=== PATIENT | male | born 1940 | race Two or more races ===

== ENCOUNTER 2018-04-20 11:31 | Day surgery (SDC) | payer MEDICARE ==
[2018-04-17 07:39] VITALS: BMI 38.0
[2018-04-20 12:21] LABS: BASO # 0.03 K/mm3 (0.0-2.0); BASO % 0.5 % (0.0-3.0); EOS # 0.1 (0.0-0.7); EOS % 2.1 % (1.5-5.0); GRAN # 3.29 (1.4-6.5); GRAN % 52.2 % (50.0-68.0); HEMOGLOBIN 9.9 g/dL (14.0-18.0); LYMPH # 2.4 (1.2-3.4); MEAN CELL VOLUME 95.7 fl (80.0-105.0); MEAN CORPUSCULAR HEMOGLOBIN 30.1 pg (25.0-35.0); MEAN CORPUSCULAR HGB CONC 31.4 g/dl (31.0-37.0); MEAN PLATELET VOLUME 9.2 fl (7.0-11.0); MONO # 0.5 (0.1-0.6); MONO % 7.2 % (1.0-6.0); RBC 3.29 10^6/uL (3.5-6.1); RED CELL DISTRIBUTION WIDTH 14.2 % (11.5-14.5); WHITE BLOOD COUNT 6.3 10^3/uL (4.5-11.0)
[2018-04-20 12:28] LABS: CALCIUM 9.4 mg/dL (8.4-10.5); INR 1.03; PARTIAL THROMBOPLASTIN TIME 32.6 Seconds (25.1-36.5); PROTHROMBIN TIME 11.8 SECONDS (9.4-12.5)
[2018-04-20 13:35] LABS: FREE T4 1.02 ng/dL (0.78-2.19)
[2018-04-20] MEDS ORDERED: Midazolam 2 MG/2 ML VIAL ONE (13:37)
[2018-04-20] MEDS ORDERED: Oxycodone/Acetaminophen 5/325 mg Tab PO PRN (14:13)
[2018-04-20] MEDS ORDERED: Sodium Chloride 0.45% 1,000 ML IV SCH (14:15)
[2018-04-20 15:18] VITALS: BP 112/54; PULSE 67; RESP 20; TEMP 97.7; O2SAT 98
--- NOTE | 2018-04-20 17:59 | US ---
PROCEDURE: Ultrasound-guided right thyroid fine needle aspiration biopsy. CLINICAL HISTORY: Dominant 2.5 cm heterogeneous right thyroid nodule. Evaluate for malignancy PHYSICIAN(S): Valente Whitfield M.D. TECHNIQUE: The relative risks and indications for the procedure were explained to the patient and consent obtained. The patient was placed supine on the stretcher with the neck extended and preliminary sonography of the thyroid performed. This reveal dominant 2.5 cm heterogeneous nodule in the mid right thyroid. Additional smaller nodules are seen. The left lobe is somewhat atrophic. The neck was prepped and draped in the usual sterile fashion. Conscious sedation and monitoring were provided throughout the procedure by a nurse. 1% Xylocaine was used to anesthetize the skin and soft tissues at the access site. Three passes with a 22-gauge needle were performed under ultrasound guidance for fine needle aspiration of the 2.5 cm hypoechoic nodule in the right thyroid. The slides were reviewed by pathology and deemed adequate. The patient tolerated the procedure well. IMPRESSION: 1. Ultrasound guided fine needle aspiration of a 2.5 cm dominant heterogeneous nodule in the right thyroid
== END 2018-04-20 16:05 | disposition home or self-care (01) ==
LOC: SDS 11:31
PROVIDERS: ATTEND Radiology Vascular & Interventional Radiology
DX: E04.1 Nontoxic single thyroid nodule (principal)
CPT/HCPCS: 10005; 36415; 80048; 84439; 84443; 84481; 85025; 85610; 85730; 86376; 86800; 88173; 88305; 99152; J2405; J3010; J7030

== ENCOUNTER 2018-04-24 01:51 | Emergency (ER) | payer MEDICARE ==
[2018-04-24 01:51] VITALS: BMI 38.0
[2018-04-24 02:03] VITALS: RESP 18
--- NOTE | 2018-04-24 02:15 | ED PDOC ---
Arrival/HPI - General Chief Complaint: Abdominal Pain Time Seen by Provider: 04/24/18 01:53 Historian: Patient, Family - History of Present Illness Narrative History of Present Illness (Text): 04/24/18 02:11 Olga Lidia Ryan is a 77 year old male, whose past medical history includes Parkinson's disease and aortic valve repair, who presents to the Emergency department accompanied by family complaining of abdominal pain. Patient states he has been experiencing diffuse abdominal pain for the past 2-3 days with associated constipation. states patient's last bowel movement was 2 days ago. Patient denies any fever, chills, chest pain, shortness of breath, nausea, vomiting, diarrhea, urinary symptoms, back pain, neck pain, headache, dizziness, or any other complaints. Symptom Onset: Gradual Symptom Course: Unchanged Activities at Onset: Light Context: Home Past Medical History - Provider Review Nursing Documentation Reviewed: Yes - Cardiac Hx Pacemaker: No - Neurological Hx Paralysis: No - Hematological/Oncological Hx Blood Transfusions: No - Musculoskeletal/Rheumatological Hx Musculoskeletal Disorders: No - Psychiatric Hx Emotional Abuse: No Hx Physical Abuse: No Hx Substance Use: No - Anesthesia Hx Anesthesia Reactions: No Hx Malignant Hyperthermia: No - Suicidal Assessment Feels Threatened In Home Enviroment: No Family/Social History - Physician Review Nursing Documentation Reviewed: Yes Family/Social History: Unknown Family HX Smoking Status: Unknown If Ever Smoked Hx Alcohol Use: No Hx Substance Use: No Allergies/Home Meds Allergies/Adverse Reactions: Allergies No Known Allergies Allergy (Verified 04/24/18 01:54) Home Medications: Home Meds Medication Instructions Recorded Confirmed Aspirin [Adult Aspirin Regimen] 81 mg PO DAILY 04/18/18 04/24/18 Carbidopa/Levodopa [Rytary 61.25 3 cap PO TID 04/18/18 04/24/18 mg-245 mg] DULoxetine [Cymbalta] 30 mg PO DAILY 04/18/18 04/24/18 Diclofenac Sodium/Misoprostol 1 tab PO BID 04/18/18 04/24/18 [Arthrotec 75 mg-0.2 mg] Esomeprazole Magnesium [Nexium] 40 mg PO DAILY 04/18/18 04/24/18 Furosemide [Lasix] 80 mg PO DAILY 04/18/18 04/24/18 Metoprolol Tartrate [Lopressor] 50 mg PO BID 04/18/18 04/24/18 Potassium Chloride [K-Tab ER] 10 meq PO DAILY 04/18/18 04/24/18 RX: Baclofen [Lioresal] 10 mg PO BID 04/18/18 04/24/18 RX: Spironolactone [Aldactone] 25 mg PO DAILY 04/18/18 04/24/18 Rasagiline Mesylate [Azilect] 1 mg PO DAILY 04/18/18 04/24/18 Review of Systems - Physician Review All systems were reviewed & negative as marked: Yes - Review of Systems Constitutional: Normal. absent: Fevers Eyes: Normal ENT: Normal Respiratory: Normal. absent: SOB, Cough Cardiovascular: Normal Gastrointestinal: Abdominal Pain, Constipation Genitourinary Male: Normal. absent: Dysuria, Frequency, Hematuria, Urinary Out put Changes Musculoskeletal: Normal. absent: Arthralgias, Back Pain, Neck Pain Skin: Normal. absent: Rash Neurological: Normal Endocrine: Normal Hemo/Lymphatic: Normal Psychiatric: Normal Physical Exam Vital Signs Reviewed: Yes Vital Signs Temp Pulse Resp BP Pulse Ox 04/24/18 01:59 98 F 96 H 18 135/78 100 Temperature: Afebrile Blood Pressure: Normal Pulse: Regular Respiratory Rate: Normal Appearance: Positive for: Well-Appearing, Non-Toxic, Comfortable Pain Distress: None Mental Status: Positive for: Alert and Oriented X 3 - Systems Exam Head: Present: Atraumatic, Normocephalic Pupils: Present: PERRL Extroacular Muscles: Present: EOMI Conjunctiva: Present: Normal Mouth: Present: Moist Mucous Membranes Neck: Present: Normal Range of Motion Respiratory/Chest: Present: Clear to Auscultation, Good Air Exchange. No: Respiratory Distress, Accessory Muscle Use Cardiovascular: Present: Regular Rate and Rhythm, Normal S1, S2. No: Murmurs Abdomen: Present: Distention (Distended, firm abdomen). No: Tenderness, Peritoneal Signs Back: Present: Normal Inspection. No: CVA Tenderness, Midline Tenderness, Paraspinal Tenderness Upper Extremity: Present: Normal Inspection. No: Cyanosis, Edema Lower Extremity: Present: Normal Inspection. No: Edema Neurological: Present: GCS=15, CN II-XII Intact, Speech Normal Skin: Present: Warm, Dry, Normal Color. No: Rashes Psychiatric: Present: Alert, Oriented x 3, Normal Insight, Normal Concentration Medical Decision Making ED Course and Treatment: 04/24/18 02:11 Impression: 77 year old male complaining of abdominal pain and constipation. Plan: -- CT Abdomen and Pelvis -- EKG -- Chest X-ray -- Labs, lipase -- IV fluids -- Morphine -- Reassess and disposition Prior Visits: Notes and results from previous visits were reviewed. Progress Notes: Reviewed EKG, sinus tachycardia at [address] bpm[address] Non-specific ST/T wave changes. 04/24/18 04:43 Reviewed radiology, Chest X-ray shows atelectatic changes and bowel distension. CT Abdomen and Pelvis: Moderate diffuse gaseous distention of the sigmoid which contains fecal material. The largest transverse dimension of the sigmoid measures 10.6 cm. No evidence of fat perforation or pneumatosis coli. Bilateral basilar atelectatic pulmonary changes. Normal unenhanced liver. Normal gallbladder and extrahepatic biliary system. Normal unenhanced spleen. Normal pancreas. Normal bilateral adrenal glands. Normal size of the right kidney. There is no right renal mass. There are no right renal calculi. There is no right hydronephrosis. Normal visualized right ureter. Normal size of the left kidney. There is no left renal mass. There are no left renal calculi. There is no left hydronephrosis. Normal visualized left ureter. Fluid-filled distended stomach. Unremarkable small intestine. The appendix is visualized and appears normal. There is no demonstrated peritoneal fluid. Normal abdominal aorta. Normal inferior vena cava. Normal retroperitoneum. Normal urinary bladder. There is no pelvic mass lesion or lymphadenopathy. There is no pelvic fluid. Mild prostatomegaly. Distended bladder. Normal abdominal wall. Unremarkable lower lumbar fusion metallic hardware. IMPRESSION: Acute sigmoid volvulus without perforation or pneumatosis coli. Surgical consultation is recommended. Electronically signed on Apr 24, 2018 4:34:02 AM EST by: Kacy Orozco M.D., Certified by ABR, MSK, Neuroradiology 04/24/18 04:[address] scan findings discussed with surgical manager mason tender restoration labor, who is aware and agrees to evaluate pt. Immediate call placed to Dr. Marquez's service, pending call back. 04/24/18 04:[address] Guerra, who is aware and agrees with plan. Accepts pt in to hospitalist service. Stat surgical consult ordered. Pt will be admitted to [facility] for abdominal pain and volvulus. certified prosthetist vice president notified. 04/24/18 05:[address] Marquez, surgeon mason tender restoration labor/case discussed.Will consult.enrollment management vice president evaluating patient in ED. - Critical Care Critical Care Minutes: 30 minutes - RAD Interpretation Linoleum Layer Apprentice: ED Physician, Radiologist - Auraibdonnie Statement The provider has reviewed the documentation as recorded by the Scribe Samara Rush Provider Scribe Attestation: All medical record entries made by the Auraibdonnie were at my direction and personally dictated by me. I have reviewed the chart and agree that the record accurately reflects my personal performance of the history, physical exam, medical decision making, and the department course for this patient. I have also personally directed, reviewed, and agree with the discharge instructions and disposition. Disposition/Present on Arrival - Present on Arrival Any Indicators Present on Arrival: No History of DVT/PE: No History of Uncontrolled Diabetes: No Urinary Catheter: No History of Decub. Ulcer: No History Surgical Site Infection Following: None - Disposition Have Diagnosis and Disposition been Completed?: Yes Diagnosis: Abdominal pain, Sigmoid volvulus Disposition: HOSPITALIZED Disposition Time: 05:01 Patient Plan: Admission Patient Problems: Current Active Problems Problem Status Onset Abdominal pain Acute Sigmoid volvulus Acute Condition: STABLE
[2018-04-24] MEDS ORDERED: Morphine 2 mg/ml ISec IVP STA (02:24)
[2018-04-24] MEDS ORDERED: Sodium Chloride 0.9% 1,000 ML IV SCH ×2 (02:30→12:01)
[2018-04-24 02:34] LABS: HEMOGLOBIN 10.1 g/dL (14.0-18.0); MEAN CELL VOLUME 96.7 fl (80.0-105.0); MEAN CORPUSCULAR HEMOGLOBIN 30.3 pg (25.0-35.0); MEAN CORPUSCULAR HGB CONC 31.4 g/dl (31.0-37.0); MEAN PLATELET VOLUME 8.9 fl (7.0-11.0); RBC 3.33 10^6/uL (3.5-6.1); RED CELL DISTRIBUTION WIDTH 14.4 % (11.5-14.5); WHITE BLOOD COUNT 9.8 10^3/uL (4.5-11.0)
[2018-04-24 02:40] LABS: ALB/GLOB RATIO 1.2 (1.1-1.8); ALBUMIN 4.6 g/dL (3.0-4.8); CALCIUM 10.6 mg/dL (8.4-10.5)
[2018-04-24] MEDS ORDERED: Morphine 2 mg/ml ISec ONE (02:47)
[2018-04-24] MEDS ORDERED: Morphine 4 mg/ml ISec IVP STA (04:16)
[2018-04-24] MEDS ORDERED: Sodium Chloride 0.9% 1,000 ML IV STA (04:49)
--- NOTE | 2018-04-24 05:44 | CP.PCM.HP ---
<Ortiz Estrada - Last Filed: 04/24/18 07:00> History of Present Illness - History of Present Illness History of Present Illness: PGY-1 H&P for Dr. Guerra CC: Abdominal pain Patient is a 77 year old male whose past medical history includes Parkinson's disease, sleep apnea, neuropathy, left breast cancer s/p radiation and radical mastectomy (35 years ago), and aortic valve repair, who presents to the Emergency department accompanied by family complaining of abdominal pain. Patient states he has been experiencing diffuse abdominal pain for the past 2-3 days with associated constipation. states patient's last bowel movement was 4 days ago. Patient admits to shortness of breath that started this morning. Patient denies any fever, chills, chest pain, nausea, vomiting, diarrhea, ur inary symptoms, back pain, neck pain, headache, dizziness, or any other complaints. 12 systems ROS reviewed and negative except mentioned in HPI. PMHx: Parkinson's disease, sleep apnea, neuropathy, left breast cancer s/p radiation and radical mastectomy (35 years ago), PSHx: Aortic valve repair (2014), radical mastectomy of left breast (35 years ago), vertebral fusin, right leg surgery Family Hx: Father had diabetes Social Hx: Former smoker, 24 pack years, quit 35 years ago. Denied alcohol and drug use. Allergies: NKDA Meds: see JUN PMD: Dr. Danii Giordano GI: Dr. Bhat Neurologist: Dr. Astudillo Present on Admission - Present on Admission Any Indicators Present on Admission: No History of DVT/PE: No History of Uncontrolled Diabetes: No Urinary Catheter: No Decubitus Ulcer Present: No Review of Systems - Review of Systems All systems: reviewed and no additional remarkable complaints except Past Patient History - Past Social History Smoking Status: Unknown If Ever Smoked - CARDIAC Hx Pacemaker: No - NEUROLOGICAL Hx Paralysis: No - HEMATOLOGICAL/ONCOLOGICAL Hx Blood Transfusions: No - MUSCULOSKELETAL/RHEUMATOLOGICAL Hx Musculoskeletal Disorders: No - GENITOURINARY/GYNECOLOGICAL Hx Prostate Problems: Yes - PSYCHIATRIC Hx Emotional Abuse: No Hx Physical Abuse: No Hx Substance Use: No - SURGICAL HISTORY Hx Surgeries: Yes Hx Mastectomy: Yes (L leg) Hx Orthopedic Surgery: Yes (R leg) Hx Valve Replacement: Yes (Aortic) Other/Comment: Deep brain stimulator. back surgery. varicose veins - ANESTHESIA Hx Anesthesia Reactions: No Hx Malignant Hyperthermia: No Meds Allergies/Adverse Reactions: Allergies Allergy/AdvReac Type Severity Reaction Status Date / Time No Known Allergies Allergy Verified 04/24/18 12:22 Physical Exam - Constitutional Appears: Non-toxic, No Acute Distress - Head Exam Head Exam: ATRAUMATIC, NORMAL INSPECTION - Eye Exam Eye Exam: EOMI, Normal appearance - ENT Exam ENT Exam: Mucous Membranes Dry - Respiratory Exam Respiratory Exam: Clear to Auscultation Bilateral, NORMAL BREATHING PATTERN. ab sent: Rales, Rhonchi, Wheezes, Respiratory Distress - Cardiovascular Exam Cardiovascular Exam: REGULAR RHYTHM, +S1, +S2. absent: Gallop, Rubs, Systolic Murmur - GI/Abdominal Exam GI & Abdominal Exam: Distended, Firm, Normal Bowel Sounds, Tenderness. absent: Soft - Extremities Exam Extremities exam: Positive for: normal inspection. Negative for: calf tenderness - Neurological Exam Neurological exam: Alert, CN II-XII Intact, Oriented x3 - Psychiatric Exam Psychiatric exam: Normal Affect, Normal Mood - Skin Skin Exam: Dry, Intact, Normal Color, Warm Additional comments: Deep brain stimulator battery in upper right chest Results - Vital Signs Recent Vital Signs: Last Vital Signs Temp 98 F 04/24/18 01:59 Pulse 102 H 04/24/18 02:50 Resp 18 04/24/18 02:50 BP 135/76 04/24/18 02:50 Pulse Ox 98 04/24/18 02:50 - Labs Result Diagrams: 04/24/18 02:21 04/24/18 02:21 Labs: Laboratory Results - last 24 hr 04/24/18 04/24/18 02:21 02:21 WBC 9.8 D RBC 3.33 L Hgb 10.1 L Hct 32.2 L MCV 96.7 MCH 30.3 MCHC 31.4 RDW 14.4 Plt Count 190 MPV 8.9 Sodium 138 Potassium 4.9 Chloride 106 Carbon Dioxide 22 Anion Gap 15 BUN 52 H Creatinine 1.6 H Est GFR ( Amer) 51 Est GFR (Non-Af Amer) 42 Random Glucose 149 H Calcium 10.6 H Total Bilirubin 0.4 AST 30 ALT 20 Alkaline Phosphatase 69 Total Protein 8.5 H Albumin 4.6 Globulin 3.9 Albumin/Globulin Ratio 1.2 Lipase 189 Assessment & Plan - Assessment and Plan (Free Text) Assessment: Patient is a 77 year old male whose past medical history includes Parkinson's disease, sleep apnea, neuropathy, left breast cancer s/p radiation and radical mastectomy (35 years ago), and aortic valve repair, who is admitted for sigmoid volvulus. Plan: Abdominal pain 2/2 acute sigmoid volvulus - CT abdomen and pelvis: Acute sigmoid volvulus without perforation or pneumatosis coli - Surgery consulted, Dr. Tomas- not a good surgical candidate - GI consulted, Dr. Zimmerman- for possible decompression via endoscopy - EKG: sinus tachycardia at 102 bpm. Non-specific ST/T wave changes. - Chest X-ray: atelectatic changes and bowel distension - NPO - IVF: NS @ 100mls/hr - Protonix 40mg IV QD NICO likely 2/2 pre-renal - likely 2/2 to dehydration - BUN/Cr >20 - IVF: NS @ 100mls/hr Hypercalcemia: - Likely secondary to dehydration - IVF: NS @ 100mls/hr - Continue to monitor Prophylaxis: - DVT: SCD's - GI: Protonix 40mg IV QD Case discussed with Dr. Mari Estrada, PGY-1 <Darren Guerra - Last Filed: 04/26/18 01:30> Results - Vital Signs Recent Vital Signs: Last Vital Signs Temp 98.1 F 04/24/18 16:30 Pulse 90 04/24/18 16:30 Resp 18 04/24/18 17:15 BP 127/82 04/24/18 16:30 Pulse Ox 99 04/24/18 09:07 - Labs Result Diagrams: 04/24/18 02:21 04/24/18 02:21 Attending/Attestation - Attestation I have personally seen and examined this patient.: Yes I have fully participated in the care of the patient.: Yes I have reviewed all pertinent clinical information: Yes Notes (Text): 04/26/18 01:28 Patient was seen when he was in the ER. Agree with history, physical examination, assessment and plan with some exclusions and inclusions. CC: Abdominal pain-diffuse. sob constipation since Monday PMH: Parkinson's disease Breast cancer. AVR DBS Left tibia ORIF Left breast mastectomy L4,5,S1 fusion Obesity-38.0 Thyroid biopsy one week ago by Dr.P Whitfield @ [facility] [place] report awaiting. Neg endoscopy/colonoscoy history.
--- NOTE | 2018-04-24 07:31 | CP.PCM.CON ---
History of Present Illness - History of Present Illness History of Present Illness: Surgery: Dr. Marquez CC: Abd pain HPI: 77M w. pmh of parkinson's, sleep apnea, and breast CA presents to ED w. acute onset abd pain. Pain started yesterday. Pain was initially intermittent and described as stabbing in nature. Pain eventually progressed to constant prompting him to come to ED. Pt states that last flatus/BM was 2 days ago. He denies n/v. No F/C. Pt states that he had similar pain in the past related to an obstruction, was not able to further specify, but states that symptoms resolved with bowel rest. CT done in ED showed sigmoid volvulous for which surgery was consulted. PMH: see abov PSH: L MRM, lumbar fusion, aortic valve repair, ventricular drain Meds: MAR reviewed NKDA Social: Former tobacco, no ETOH/drugs Fhx: Non-contributory Review of Systems - Review of Systems All systems: reviewed and no additional remarkable complaints except (HPI) Past Patient History - Past Social History Smoking Status: Unknown If Ever Smoked - CARDIAC Hx Pacemaker: No - NEUROLOGICAL Hx Paralysis: No - HEMATOLOGICAL/ONCOLOGICAL Hx Blood Transfusions: No - MUSCULOSKELETAL/RHEUMATOLOGICAL Hx Musculoskeletal Disorders: No - GENITOURINARY/GYNECOLOGICAL Hx Prostate Problems: Yes - PSYCHIATRIC Hx Emotional Abuse: No Hx Physical Abuse: No Hx Substance Use: No - SURGICAL HISTORY Hx Surgeries: Yes Hx Mastectomy: Yes (L leg) Hx Orthopedic Surgery: Yes (R leg) Hx Valve Replacement: Yes (Aortic) Other/Comment: Deep brain stimulator. back surgery. varicose veins - ANESTHESIA Hx Anesthesia Reactions: No Hx Malignant Hyperthermia: No Meds Allergies/Adverse Reactions: Allergies Allergy/AdvReac Type Severity Reaction Status Date / Time No Known Allergies Allergy Verified 04/24/18 01:54 - Medications Medications: Current Medications Sodium Chloride (Sodium Chloride 0.9%) 1,000 mls @ 100 mls/hr IV .Q10H SHANE Last Admin: 04/24/18 02:47 Dose: 100 mls/hr Morphine Sulfate (Morphine) 1 mg IVP Q4H SHANE Pantoprazole Sodium (Protonix Inj) 40 mg IVP DAILY SHANE Physical Exam - Constitutional Appears: Non-toxic, No Acute Distress - Head Exam Head Exam: ATRAUMATIC, NORMOCEPHALIC - Eye Exam Eye Exam: EOMI - ENT Exam ENT Exam: Mucous Membranes Moist - Neck Exam Neck exam: Positive for: Full Rom - Respiratory Exam Respiratory Exam: NORMAL BREATHING PATTERN. absent: Accessory Muscle Use, Respiratory Distress - GI/Abdominal Exam GI & Abdominal Exam: Distended, Soft, Tenderness. absent: Firm, Guarding, Irina ound, Rigid - Extremities Exam Extremities exam: Negative for: calf tenderness, pedal edema - Neurological Exam Neurological exam: Alert, Oriented x3 - Psychiatric Exam Psychiatric exam: Normal Affect, Normal Mood Results - Vital Signs Recent Vital Signs: Last Vital Signs Temp 98 F 04/24/18 01:59 Pulse 109 H 04/24/18 06:22 Resp 18 04/24/18 06:22 BP 139/94 H 04/24/18 06:22 Pulse Ox 100 04/24/18 06:22 - Labs Result Diagrams: 04/24/18 02:21 04/24/18 02:21 Labs: Laboratory Results - last 24 hr 04/24/18 04/24/18 02:21 02:21 WBC 9.8 D RBC 3.33 L Hgb 10.1 L Hct 32.2 L MCV 96.7 MCH 30.3 MCHC 31.4 RDW 14.4 Plt Count 190 MPV 8.9 Sodium 138 Potassium 4.9 Chloride 106 Carbon Dioxide 22 Anion Gap 15 BUN 52 H Creatinine 1.6 H Est GFR ( Amer) 51 Est GFR (Non-Af Amer) 42 Random Glucose 149 H Calcium 10.6 H Total Bilirubin 0.4 AST 30 ALT 20 Alkaline Phosphatase 69 Total Protein 8.5 H Albumin 4.6 Globulin 3.9 Albumin/Globulin Ratio 1.2 Lipase 189 - Imaging and Cardiology CT scan - abdomen Status: Image reviewed by me, Report reviewed by me Assessment & Plan - Assessment and Plan (Free Text) Assessment: 77M w. multiple commorbidities presenting w. sigmoid volvulous -NPO -IVF -Recommend GI consult for C-scope decompression -Possible surgical intervention if volvulous cannot be decompressed -will d/w attending Reaganitis PGY4
--- NOTE | 2018-04-24 09:04 | RAD ---
Date of service: 04/24/2018 PROCEDURE: CHEST RADIOGRAPH, 1 VIEW HISTORY: fever COMPARISON: 02/01/2016. FINDINGS: LUNGS: There is moderate pulmonary venous congestion and mild interstitial pulmonary edema. PLEURA: No pneumothorax or pleural effusion. CARDIOVASCULAR: Mild cardiomegaly with prominent central vasculature. A battery pack overlies the right hemithorax. There are no aortic atherosclerotic calcifications present. OSSEOUS STRUCTURES: Within normal limits for the patient's age. VISUALIZED UPPER ABDOMEN: Normal. OTHER FINDINGS: None. IMPRESSION: Mild cardiomegaly and moderate venous congestion with mild interstitial pulmonary edema. No lobar pneumonia.
--- NOTE | 2018-04-24 09:05 | CT ---
Date of service: 04/24/2018 PROCEDURE: CT Abdomen and Pelvis without intravenous contrast HISTORY: pain COMPARISON: None. TECHNIQUE: Without contrast. Contrast dose: Radiation dose: Total exam DLP = 1536.57 mGy-cm. This CT exam was performed using one or more of the following dose reduction techniques: Automated exposure control, adjustment of the mA and/or kV according to patient size, and/or use of iterative reconstruction technique. FINDINGS: LOWER THORAX: Unremarkable. LIVER: Unremarkable. No gross lesion or ductal dilatation. GALLBLADDER AND BILE DUCTS: Unremarkable. PANCREAS: Unremarkable. No gross lesion or ductal dilatation. SPLEEN: Unremarkable. ADRENALS: Unremarkable. No mass. KIDNEYS AND URETERS: Unremarkable. No hydronephrosis. No solid mass. VASCULATURE: Unremarkable. No aortic aneurysm. No aortic atherosclerotic calcification or mural plaque present. BOWEL: There is severe sigmoid volvulus. The colon is dilated to a maximum diameter of 10 cm in the ascending colon. There is no evidence of pneumatosis or free air. Surgical consultation is recommended as was indicated on the preliminary report. The transition point is visualized on image 67 of series 2 and sagittal image 92 series 602. APPENDIX: Unremarkable. Normal appendix. PERITONEUM: Unremarkable. No free fluid. No free air. LYMPH NODES: Unremarkable. No enlarged lymph nodes. BLADDER: Unremarkable. REPRODUCTIVE: Unremarkable. BONES: No acute fracture. OTHER FINDINGS: The report concurs with the preliminary [facility] report IMPRESSION: There is severe sigmoid volvulus. The colon is dilated to a maximum diameter of 10 cm in the ascending colon. There is no evidence of pneumatosis or free air.
[2018-04-24 09:09] VITALS: O2SAT 99
[2018-04-24] MEDS: Morphine 2 mg/ml ISec IVP SCH ×2 (10:55→17:14)
--- NOTE | 2018-04-24 10:57 | CARD ---
APPROVED REPORT Date of service: 04/24/2018 EKG Measurement Heart [id number] <Conclusion> Sinus tachycardia Cannot rule out Anterior infarct, age undetermined Abnormal ECG
--- NOTE | 2018-04-24 13:57 | CON ---
DATE: 04/24/2018 GASTROENTEROLOGY CONSULTATION REQUESTING PHYSICIAN: Dr. Keating REASON FOR CONSULTATION: I have been asked to see this 77-year-old male with a history of left breast cancer in the distant past, Parkinson's disease, sleep apnea, neuropathy, who comes to the hospital with 2-3 days of abdominal pain. The patient states that he has not had a bowel movement for 4 days. His abdominal pain became worse and prompted him to come to the emergency room. He has also had some shortness of breath. CT scan of the abdomen and pelvis shows a sigmoid volvulus with moderately dilated loops of colon above the sigmoid volvulus. There is evidence of twisting of the sigmoid mesentery. PAST MEDICAL HISTORY: As above. Again, he has a history of left breast cancer, neuropathy, sleep apnea, Parkinson's disease, valvular heart disease. PAST SURGICAL HISTORY: Notable for aortic valve repair in 2014, left radical mastectomy 35 years ago, right leg surgery and vertebral fusion. SOCIAL HISTORY: The patient is a former cigarette smoker having quit 35 years ago. He denies alcohol use. FAMILY HISTORY: Noncontributory. REVIEW OF SYSTEMS: A 14-point review of systems is notable for abdominal pain and constipation. PHYSICAL EXAMINATION: GENERAL: Elderly male, lying in bed, in no acute distress. VITAL SIGNS: Reveal temperature of 98, blood pressure 126/84, heart rate 103. HEENT: Reveal sclerae to be white. Conjunctivae pink. NECK: Supple. CHEST: Reveals distant breath sounds. HEART: Reveals a regular rate and rhythm. ABDOMEN: Soft, distended, nontender. Diminished bowel sounds. EXTREMITIES: Show pedal edema, left greater than right, with erythema of both lower extremities. LABORATORY DATA: Reveal white blood cell count 9.8, hemoglobin of 10.1. Chemistries reveal BUN 52, creatinine 1.6. AST, ALT, alk phos are all normal. IMPRESSION: A 77-year-old male with 3 days of abdominal pain with last bowel movement being 4 days ago with a [address] scan of the abdomen and pelvis showing sigmoid volvulus with colonic dilatation above the sigmoid volvulus. There is twisting of the adjacent sigmoid mesentery. This volvulus is not amenable to a colonoscopic decompression. RECOMMENDATIONS: The patient needs emergent surgery for either a sigmoid resection or diverting loop colostomy. This will need to be done as soon as possible. I have discussed this case with surgical consultant, Dr. Pérez aLne, as well as requesting director medical safety, Dr. Keating. Cedric Zimmerman MD
--- NOTE | 2018-04-24 15:36 | CP.PCM.PN ---
Subjective - Date & Time of Evaluation Date of Evaluation: 04/24/18 Time of Evaluation: 15:26 - Subjective Subjective: Surgery Progress note- Dr. Marquez Patient seen and examined at bedside w/ family members. Patient had an ECHO performed earlier today showing EF < 45%. Patient was evaluated by grant coordinator stating patient is high risk however if patient requires surgery, is ok however will need ABx due to prosthetic valve. Tunnel Drier Operator initially consulted; reviewed the images and stated patient would not benefit from colonoscopy decompression and recommends surgical intervention. Family is requesting a second opinion Tunnel Drier Operator. Dr. Alan Diaz is family GI Dr. and requesting we reach out. Called and left a voicemail will call back number 15:20; call back waiting. Also called Dr. Patel for second opinion, pending further evalaution. Patient continues to refuse surgical intervention even after explaining risks including bowel, ischemia, and . O: Neuro: AAOx3, NAD, Cardiac: RRR no andreea or tachycardia Pulm: diffuse expiratory wheezing , some shortness of breath. no Respiratory distress Abd: soft, less tender than before Ext: b/l LE edema discussed in detail with Dr. Marquez surgical attending Objective - Vital Signs/Intake and Output Vital Signs (last 24 hours): Temp Pulse Resp BP Pulse Ox 98 F 103 H 18 126/84 99 04/24/18 01:59 04/24/18 09:07 04/24/18 09:07 04/24/18 09:07 04/24/18 09:07 - Medications Medications: Current Medications Sodium Chloride (Sodium Chloride 0.9%) 1,000 mls @ 50 mls/hr IV .Q20H [facility] Morphine Sulfate (Morphine) 1 mg IVP Q4H [facility] Last Admin: 04/24/18 10:55 Dose: 1 mg Pantoprazole Sodium (Protonix Inj) 40 mg IVP DAILY [facility] Last Admin: 04/24/18 11:01 Dose: 40 mg - Labs Labs: 04/24/18 02:21 04/24/18 02:21
--- NOTE | 2018-04-24 16:23 | CP.PCM.CON ---
<Kun Alberto - Last Filed: 04/24/18 16:14> History of Present Illness - History of Present Illness History of Present Illness: Neurology Consultation (Dr. Rice's Service) CC: Abdominal pain HPI: Mr. Ryan is a 77 year old male with a past medical history significant for Parkinson's Disease s/p DBS Implantation, ADAM, Aortic Stenosis s/p AV Repair, Breast Cancer s/p RM who presents with diffuse abdominal pain for the past three days with associated constipation. Patient is currently uncooperative with HPI and ROS questions. Per chart review, patient's last bowel movement was four days ago. In the ED, patient admitted to SOB that started yesterday morning. Further ROS unobtainable at this time. PMH: As stated above PSH: AV Repair (2014), RM of left breast (35 years ago), DBS Implantation (2010) Family History: Father: DM2 Social History: Former tobacco smoker with 24 pack year history (Quit 35 years ago), Denies alcohol or illicit drug use Allergies: NKDA Home Medications: As per MAR PMD: Dr. Danii Giordano Neurologist: Dr. Astudillo Review of Systems - Review of Systems Review of Systems: As stated in HPI, otherwise negative Past Patient History - Past Social History Smoking Status: Unknown If Ever Smoked - CARDIAC Hx Pacemaker: No - NEUROLOGICAL Hx Paralysis: No - HEMATOLOGICAL/ONCOLOGICAL Hx Blood Transfusions: No - MUSCULOSKELETAL/RHEUMATOLOGICAL Hx Musculoskeletal Disorders: No - GENITOURINARY/GYNECOLOGICAL Hx Prostate Problems: Yes - PSYCHIATRIC Hx Emotional Abuse: No Hx Physical Abuse: No Hx Substance Use: No - SURGICAL HISTORY Hx Surgeries: Yes Hx Mastectomy: Yes (L leg) Hx Orthopedic Surgery: Yes (R leg) Hx Valve Replacement: Yes (Aortic) Other/Comment: Deep brain stimulator. back surgery. varicose veins - ANESTHESIA Hx Anesthesia Reactions: No Hx Malignant Hyperthermia: No Meds Allergies/Adverse Reactions: Allergies Allergy/AdvReac Type Severity Reaction Status Date / Time No Known Allergies Allergy Verified 04/24/18 12:22 - Medications Medications: Current Medications Sodium Chloride (Sodium Chloride 0.9%) 1,000 mls @ 50 mls/hr IV .Q20H [facility] Morphine Sulfate (Morphine) 1 mg IVP Q4H [facility] Last Admin: 04/24/18 10:55 Dose: 1 mg Pantoprazole Sodium (Protonix Inj) 40 mg IVP DAILY [facility] Last Admin: 04/24/18 11:01 Dose: 40 mg Physical Exam - Constitutional Appears: In Acute Distress, Confused - Head Exam Head Exam: ATRAUMATIC, NORMOCEPHALIC - Eye Exam Eye Exam: EOMI, Normal appearance - ENT Exam ENT Exam: Mucous Membranes Dry - Respiratory Exam Respiratory Exam: Stridor, NORMAL BREATHING PATTERN - Cardiovascular Exam Cardiovascular Exam: REGULAR RHYTHM - GI/Abdominal Exam GI & Abdominal Exam: Distended, Hypoactive Bowel Sounds, Soft, Tenderness (Diffusely) - Extremities Exam Additional comments: Erythema and edema to LLE extending to calve - Neurological Exam Neurological exam: Altered Additional comments: Patient unable to follow commands - Expanded Neurological Exam Expanded Coma Scale Eye Opening: To Voice Coma Scale Motor Response: Withdraws to Pain Coma Scale Verbal: Incomprehensible Coma Scale Total: 9 - Skin Skin Exam: Dry Results - Vital Signs Recent Vital Signs: Last Vital Signs Temp 98 F 04/24/18 01:59 Pulse 103 H 04/24/18 09:07 Resp 18 04/24/18 09:07 BP 126/84 04/24/18 09:07 Pulse Ox 99 04/24/18 09:07 - Labs Result Diagrams: 04/24/18 02:21 04/24/18 02:21 Labs: Laboratory Results - last 24 hr 04/24/18 04/24/18 02:21 02:21 WBC 9.8 D RBC 3.33 L Hgb 10.1 L Hct 32.2 L MCV 96.7 MCH 30.3 MCHC 31.4 RDW 14.4 Plt Count 190 MPV 8.9 Sodium 138 Potassium 4.9 Chloride 106 Carbon Dioxide 22 Anion Gap 15 BUN 52 H Creatinine 1.6 H Est GFR ( Amer) 51 Est GFR (Non-Af Amer) 42 Random Glucose 149 H Calcium 10.6 H Total Bilirubin 0.4 AST 30 ALT 20 Alkaline Phosphatase 69 Total Protein 8.5 H Albumin 4.6 Globulin 3.9 Albumin/Globulin Ratio 1.2 Lipase 189 Assessment & Plan - Assessment and Plan (Free Text) Assessment: 77 year old male with a past medical history significant for Parkinson's Disease s/p DBS Implantation, ADAM, Aortic Stenosis s/p AV Repair, Breast Cancer s/p RM who presents with diffuse abdominal pain for the past three days with associated constipation. Plan: -Patient is cleared from neurological perspective for planned GI and discussed surgical interventions -Patient to follow up with his outpatient neurologist upon discharge Patient seen and case discussed with attending, Dr. Rice. Kun Alberto PGY2 - Date & Time Date: 04/24/18 Time: 16:25 <Torie Rice - Last Filed: 04/26/18 18:08> Results - Vital Signs Recent Vital Signs: Last Vital Signs Temp 98.1 F 04/24/18 16:30 Pulse 90 04/24/18 16:30 Resp 18 04/24/18 17:15 BP 127/82 04/24/18 16:30 Pulse Ox 99 04/24/18 09:07 - Labs Result Diagrams: 04/24/18 02:21 04/24/18 02:21 Assessment & Plan - Assessment and Plan (Free Text) Plan: I examined the patient independently and with the resident and agree with the assessment and plan. Dr. Torie Smith MD DPN [facility] Neurology
[2018-04-24 16:40] VITALS: BP 127/82; PULSE 90; TEMP 98.1
--- NOTE | 2018-04-24 16:41 | CP.PCM.CON ---
History of Present Illness - History of Present Illness History of Present Illness: PGY-4 GI Fellow Consult Note Pt is a 77 yo M with Parkinson's Disease s/p DBS Implantation, ADAM, Aortic Stenosis s/p bovine AV, Breast Cancer s/p mastectomy, CHF presenting with abdominal pain. The following mostly obtained from family, hospital staff and chart review due to minimal patient cooperation. Patient has been having dif fuse abdominal pain over the last 3 days without any BM nor flatus reported. Family states that patient last had a colonoscopy > 5 years ago with unknown results by Dr. Diaz and [facility] [place]. In the ED, CT revealed large sigmoid volvulus without signs of perforation Unable to obtain full ROS due to clinical condition/lack of cooperation MH: As stated above SurgHx: AV Repair (2014), RM of left breast (35 years ago), DBS Implantation (2010) Meds: Reviewed in MAR FamHx: Father: DM2 Social History: Former tobacco smoker with 24 pack year history (Quit 35 years ago), Denies alcohol or illicit drug use Allergies: NKDA Past Patient History - Past Social History Smoking Status: Unknown If Ever Smoked - CARDIAC Hx Pacemaker: No - NEUROLOGICAL Hx Paralysis: No - HEMATOLOGICAL/ONCOLOGICAL Hx Blood Transfusions: No - MUSCULOSKELETAL/RHEUMATOLOGICAL Hx Musculoskeletal Disorders: No - GENITOURINARY/GYNECOLOGICAL Hx Prostate Problems: Yes - PSYCHIATRIC Hx Emotional Abuse: No Hx Physical Abuse: No Hx Substance Use: No - SURGICAL HISTORY Hx Surgeries: Yes Hx Mastectomy: Yes (L leg) Hx Orthopedic Surgery: Yes (R leg) Hx Valve Replacement: Yes (Aortic) Other/Comment: Deep brain stimulator. back surgery. varicose veins - ANESTHESIA Hx Anesthesia Reactions: No Hx Malignant Hyperthermia: No Meds Allergies/Adverse Reactions: Allergies Allergy/AdvReac Type Severity Reaction Status Date / Time No Known Allergies Allergy Verified 04/24/18 12:22 - Medications Medications: Current Medications Sodium Chloride (Sodium Chloride 0.9%) 1,000 mls @ 50 mls/hr IV .Q20H [facility] Morphine Sulfate (Morphine) 1 mg IVP Q4H [facility] Last Admin: 04/24/18 10:55 Dose: 1 mg Pantoprazole Sodium (Protonix Inj) 40 mg IVP DAILY [facility] Last Admin: 04/24/18 11:01 Dose: 40 mg Physical Exam - Constitutional Appears: No Acute Distress, Chronically Ill - Head Exam Head Exam: ATRAUMATIC, NORMAL INSPECTION - Eye Exam Eye Exam: EOMI. absent: Scleral icterus - ENT Exam ENT Exam: Mucous Membranes Dry. absent: Mucous Membranes Moist - Respiratory Exam Respiratory Exam: NORMAL BREATHING PATTERN. absent: Accessory Muscle Use, Respiratory Distress - Cardiovascular Exam Cardiovascular Exam: REGULAR RHYTHM, RRR - GI/Abdominal Exam GI & Abdominal Exam: Distended, Firm, Hypoactive Bowel Sounds, Tenderness. absent: Bruit, Diminished Bowel Sounds, Guarding, Hernia, Organomegaly, P ulsatile Mass, Rebound, Rigid Additional comments: significantly distended abd with distant, high pitched bowel sounds, mildly ttp diffusely - Extremities Exam Extremities exam: Positive for: pedal edema Additional comments: bilateral venous stasis changes in lower extremities - Neurological Exam Neurological exam: Alert - Psychiatric Exam Psychiatric exam: Flat Affect Additional comments: frustrated - Skin Skin Exam: Dry, Warm Results - Vital Signs Recent Vital Signs: Last Vital Signs Temp 98 F 04/24/18 01:59 Pulse 103 H 04/24/18 09:07 Resp 18 04/24/18 09:07 BP 126/84 04/24/18 09:07 Pulse Ox 99 04/24/18 09:07 - Labs Result Diagrams: 04/24/18 02:21 04/24/18 02:21 Labs: Laboratory Results - last 24 hr 04/24/18 04/24/18 02:21 02:21 WBC 9.8 D RBC 3.33 L Hgb 10.1 L Hct 32.2 L MCV 96.7 MCH 30.3 MCHC 31.4 RDW 14.4 Plt Count 190 MPV 8.9 Sodium 138 Potassium 4.9 Chloride 106 Carbon Dioxide 22 Anion Gap 15 BUN 52 H Creatinine 1.6 H Est GFR ( Amer) 51 Est GFR (Non-Af Amer) 42 Random Glucose 149 H Calcium 10.6 H Total Bilirubin 0.4 AST 30 ALT 20 Alkaline Phosphatase 69 Total Protein 8.5 H Albumin 4.6 Globulin 3.9 Albumin/Globulin Ratio 1.2 Lipase 189 Assessment & Plan - Assessment and Plan (Free Text) Assessment: 77 yo with Parkinsons, CHF, AVR presenting with abd pain. # Sigmoid Volvulus: CT confirming without signs of perforation. Hemodynamically stable at this time without peritonitis. Plan: - Recommended urgent endoscopic decompression in the OR with Gen Surg back-up - Family declined intervention here and prefer transfer to [place] where prior surgeris done - Counseled patient and family on risks of delaying treatment including but not limited to perforation, peritonitis and possible . Pt seen and examined with Dr. Patel; please see attestation for further recs/changes.
--- NOTE | 2018-04-24 17:19 | CON ---
DATE: 04/24/2018 CARDIOLOGY CONSULTATION HISTORY: The patient is a 77-year-old male, who presents with abdominal pain and was found to have a large volvulus. The patient also complains of occasional intermittent shortness of breath. No angina noted. The patient's cardiac history includes a history of aortic valve replacement done at [facility] 2 years ago. He is followed by his hydroelectric machinery mechanic helper in [place]. In addition, he suffers from Parkinson's disease, sleep apnea, and a questionable breast CA in the past. He denies angina. No previous myocardial infarction in the past. SOCIAL HISTORY: The patient is a former heavy smoker, who stopped more than 30 years ago. REVIEW OF SYSTEMS: Review of systems was dominated by abdominal pain and intermittent shortness of breath. PHYSICAL EXAMINATION: GENERAL: The patient is a heavy-set man, in no acute distress. VITAL SIGNS: Blood pressure is 126/84, heart rate is 100. NECK: Negative JVD. LUNGS: Decreased breath sounds bilaterally. HEART: Reveals S1, S2. EXTREMITIES: Without edema. EKG shows normal sinus rhythm with nonspecific ST-T changes. BUN and creatinine is 52 and 1.9. His hemoglobin is 10.1. IMPRESSION: 1. Abdominal pain secondary to severe sigmoid volvulus. 2. Severe sigmoid volvulus. 3. History of aortic valve replacement. 4. Echocardiogram reveals good LV function with marked with moderate LVH. There is markedly dilated left atrium. 5. History of sleep apnea. 6. Chronic obstructive pulmonary disease. 7. Parkinson's. 8. Obesity. Given these findings, the patient's cardiac status reveals good LV function with an aortic valve, prosthetic aortic valve that opens well. Given the urgency of his abdominal symptoms, the patient is at increased risk, given his cardiac history and his comorbidities. However, the patient's cardiac status appears to be at its maximum at this time. The patient will need antibiotic prophylaxis. Valente Jj MD
[2018-04-24] MEDS ORDERED: Pneumococcal 23-Valent Vaccine IM ONE (17:46)
[2018-04-24] MEDS ORDERED: Influenza Vaccine 60 mcg/0.5 mL SYR (4YR UP) IM ONE (17:46)
--- NOTE | 2018-04-24 18:08 | CP.PCM.DIS ---
<Jaison Deleon - Last Filed: 04/25/18 16:47> Provider - Provider Date of Admission: 04/24/18 05:01 Attending physician: Martin Keating MD Primary care physician: Danii Giordano MD Consults: 04/24/18 05:11 Consult [Physician Consult] Stat Comment: Consulting Provider: Dalton Marquez Consulting Physician: Dalton Marquez Reason for Consult: Sigmoid Volvulus/abdominal pain 04/24/18 06:10 Gastroenterology Consult Routine Comment: Consulting Provider: Cedric Zimmerman Consulting Physician: Cedric Zimmerman Reason for Consult: Volvulus 04/24/18 08:30 Physician Consult Routine Comment: Consulting Provider: Michael Dickens Consulting Physician: Michael Dickens Reason for Consult: h/o Parkinson's. Deep brain stimulation 04/24/18 08:36 Physician Consult Routine Comment: Consulting Provider: Valente Jj Consulting Physician: Valente Jj Reason for Consult: h/o aortic valve repair. 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 Routine Comment: Physician Instructions: Reason For Exam: EVALUATION Transition In Care/Readmission Reduction Routine Comment: Physician Instructions: Reason For Exam: EVALUATION 04/24/18 17:51 Social Work Referral Routine Comment: DISCHARGE PLANNING TO HOME./P.T Physician Instructions: Reason For Exam: EVALUATION Time Spent in preparation of Discharge (in minutes): 35 Hospital Course - Lab Results Lab Results: Most Recent Lab Values WBC 9.8 10^3/uL (4.5-11.0) D 04/24/18 02:21 RBC 3.33 10^6/uL (3.5-6.1) L 04/24/18 02:21 Hgb 10.1 g/dL (14.0-18.0) L 04/24/18 02:21 Hct 32.2 % (42.0-52.0) L 04/24/18 02:21 MCV 96.7 fl (80.0-105.0) 04/24/18 02:21 MCH 30.3 pg (25.0-35.0) 04/24/18 02:21 MCHC 31.4 g/dl (31.0-37.0) 04/24/18 02:21 RDW 14.4 % (11.5-14.5) 04/24/18 02:21 Plt Count 190 10^3/uL (120.0-450.0) 04/24/18 02:21 MPV 8.9 fl (7.0-11.0) 04/24/18 02:21 Sodium 138 mmol/L (132-148) 04/24/18 02:21 Potassium 4.9 mmol/L (3.6-5.0) 04/24/18 02:21 Chloride 106 mmol/L (98-107) 04/24/18 02:21 Carbon Dioxide 22 mmol/L (21-33) 04/24/18 02:21 Anion Gap 15 (10-20) 04/24/18 02:21 BUN 52 mg/dL (7-21) H 04/24/18 02:21 Creatinine 1.6 mg/dl (0.8-1.5) H 04/24/18 02:21 Est GFR ( Amer) 51 04/24/18 02:21 Est GFR (Non-Af Amer) 42 04/24/18 02:21 Random Glucose 149 mg/dL (70-110) H 04/24/18 02:21 Calcium 10.6 mg/dL (8.4-10.5) H 04/24/18 02:21 Total Bilirubin 0.4 mg/dL (0.2-1.3) 04/24/18 02:21 AST 30 U/L (17-59) 04/24/18 02:21 ALT 20 U/L (7-56) 04/24/18 02:21 Alkaline Phosphatase 69 U/L (38-126) 04/24/18 02:21 Total Protein 8.5 g/dL (5.8-8.3) H 04/24/18 02:21 Albumin 4.6 g/dL (3.0-4.8) 04/24/18 02:21 Globulin 3.9 gm/dL 04/24/18 02:21 Albumin/Globulin Ratio 1.2 (1.1-1.8) 04/24/18 02:21 Lipase 189 U/L (23-300) 04/24/18 02:21 - Hospital Course Hospital Course: Jaison Deleon, PGY1 Discharge Summary for Dr. Keating Patient is a 77 year old male with a past medical history significant for Parkinson's Disease s/p DBS Implantation, ADAM, Aortic Stenosis s/p AV Repair, Breast Cancer s/p RM who presented [place] [facility] [place] with diffuse abdominal pain for x 3 days with associated constipation. Vital signs stable. Patient's last bowel movement was four days prior to admission. CT A/P was done and patient was found to have acute sigmoid volvulous. No signs of perforation. Medical team was consulted for evaluation. Patient was admitted for abdominal pain 2/[address] on [address] findings, Surgery team was consulted. Their recommendations were for GI to evaluate for C-scope decompression and possible surgical intervention if volvulus is not decompressed. GI evaluated patient initially and a second opinion was also conducted as per Dr. Patel. GI recommended urgent endoscopic decompression in the OR. However, family declined intervention as they prefer the patient be transfered to [place], where he has prior surgeries done. Patient was appropriately counseled about the risks of delaying treatment such as perforation, peritonitis, and . Patient was contemplating signing out against medical advice. At 7:43 pm, [facility] picked patient up, along with son and daughter in law, for transport to [facility]. Discharge Exam - Head Exam Head Exam: ATRAUMATIC, NORMAL INSPECTION - Eye Exam Eye Exam: Normal appearance Pupil Exam: NORMAL ACCOMODATION - ENT Exam ENT Exam: Mucous Membranes Moist - Respiratory Exam Respiratory Exam: Clear to PA & Lateral. absent: Rales, Rhonchi, Wheezes - Cardiovascular Exam Cardiovascular Exam: RRR, +S1, +S2 - GI/Abdominal Exam GI & Abdominal Exam: Diminished Bowel Sounds, Distended, Tenderness (Mild tenderness to palpation) - Extremities Exam Extremities exam: full ROM - Back Exam Back exam: NORMAL INSPECTION - Neurological Exam Neurological exam: Alert, Oriented x3 - Psychiatric Exam Psychiatric exam: Normal Affect, Normal Mood - Skin Skin Exam: Dry, Intact, Normal Color, Warm Discharge Plan - Follow Up Plan Condition: STABLE Disposition: HOSPITALIZED Referrals: Danii Giordano MD [Primary Care Provider] - <Martin Keating - Last Filed: 04/26/18 06:53> Provider - Provider Primary care physician: Danii Giordano MD Consults: 04/24/18 05:11 Consult [Physician Consult] Stat Comment: Consulting Provider: Dalton Marquez Consulting Physician: Dalton Marquez Reason for Consult: Sigmoid Volvulus/abdominal pain 04/24/18 06:10 Gastroenterology Consult Routine Comment: Consulting Provider: Cedric Zimmerman Consulting Physician: Cedric Zimmerman Reason for Consult: Volvulus 04/24/18 08:30 Physician Consult Routine Comment: Consulting Provider: Michael Dickens Consulting Physician: Michael Dickens Reason for Consult: h/o Parkinson's. Deep brain stimulation 04/24/18 08:36 Physician Consult Routine Comment: Consulting Provider: Valente Jj Consulting Physician: Valente Jj Reason for Consult: h/o aortic valve repair. 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 Routine Comment: Physician Instructions: Reason For Exam: EVALUATION Transition In Care/Readmission Reduction Routine Comment: Physician Instructions: Reason For Exam: EVALUATION 04/24/18 17:51 Social Work Referral Routine Comment: DISCHARGE PLANNING TO HOME./P.T Physician Instructions: Reason For Exam: EVALUATION Hospital Course - Lab Results Lab Results: Most Recent Lab Values WBC 9.8 10^3/uL (4.5-11.0) D 04/24/18 02:21 RBC 3.33 10^6/uL (3.5-6.1) L 04/24/18 02:21 Hgb 10.1 g/dL (14.0-18.0) L 04/24/18 02:21 Hct 32.2 % (42.0-52.0) L 04/24/18 02:21 MCV 96.7 fl (80.0-105.0) 04/24/18 02:21 MCH 30.3 pg (25.0-35.0) 04/24/18 02:21 MCHC 31.4 g/dl (31.0-37.0) 04/24/18 02:21 RDW 14.4 % (11.5-14.5) 04/24/18 02:21 Plt Count 190 10^3/uL (120.0-450.0) 04/24/18 02:21 MPV 8.9 fl (7.0-11.0) 04/24/18 02:21 Sodium 138 mmol/L (132-148) 04/24/18 02:21 Potassium 4.9 mmol/L (3.6-5.0) 04/24/18 02:21 Chloride 106 mmol/L (98-107) 04/24/18 02:21 Carbon Dioxide 22 mmol/L (21-33) 04/24/18 02:21 Anion Gap 15 (10-20) 04/24/18 02:21 BUN 52 mg/dL (7-21) H 04/24/18 02:21 Creatinine 1.6 mg/dl (0.8-1.5) H 04/24/18 02:21 Est GFR ( Amer) 51 04/24/18 02:21 Est GFR (Non-Af Amer) 42 04/24/18 02:21 Random Glucose 149 mg/dL (70-110) H 04/24/18 02:21 Calcium 10.6 mg/dL (8.4-10.5) H 04/24/18 02:21 Total Bilirubin 0.4 mg/dL (0.2-1.3) 04/24/18 02:21 AST 30 U/L (17-59) 04/24/18 02:21 ALT 20 U/L (7-56) 04/24/18 02:21 Alkaline Phosphatase 69 U/L (38-126) 04/24/18 02:21 Total Protein 8.5 g/dL (5.8-8.3) H 04/24/18 02:21 Albumin 4.6 g/dL (3.0-4.8) 04/24/18 02:21 Globulin 3.9 gm/dL 04/24/18 02:21 Albumin/Globulin Ratio 1.2 (1.1-1.8) 04/24/18 02:21 Lipase 189 U/L (23-300) 04/24/18 02:21 Attending/Attestation - Attestation I have personally seen and examined this patient.: Yes I have fully participated in the care of the patient.: Yes I have reviewed all pertinent clinical information, including history, physical exam and plan: Yes Notes (Text): 04/24/18 77 year old male with past medical history of Parkinson's disease s/p DBS implantation, aortic stenosis s/p AV repair, breast cancer s/p mastectomy who presented with abdominal pain. He was found to have acute sigmoid volvulus on CT scan. He was seen by GI and surgery who recommended emergent surgery which patient and family declined, requesting to be transferred to [facility]. Risks of delaying treatment including perforation, sepsis, perotinitis and were explained to patient and family. Patient was transferred to [facility] from the ER via [facility] with accepting doctor Dr. Garcia. I spoke with Dr. Garcia same evening and endorsed the patient for signout. Martin Keating MD Hospitalist.
== END 2018-04-24 19:43 | disposition short-term general hospital (02) ==
LOC: ED 01:51 → ERH 05:01 → UNDOADMIN 05:01 → ED 19:43
DX: K56.2 Volvulus (principal); G20 Parkinson's disease; Z85.3 Personal history of malignant neoplasm of breast
CPT/HCPCS: 71045; 74176; 80053; 83690; 85027; 93005; 93306; 96361; 96374; 96376; 99284; C9113; J2270; J7030

== ENCOUNTER 2018-08-22 11:28 | Outpatient (CLI) | payer MEDICARE | END 2018-08-22 11:29 | disposition home or self-care (01) | LOC: RAD 11:28 ==